=== PATIENT | male | born 1945 | race Caucasian/White ===

== ENCOUNTER 2023-09-09 12:18 | Inpatient (IN) | payer MEDICARE, MEDICAID ==
[~2023-09-09] VITALS: Ht 167.6 cm; Wt 126.4 kg
[2023-09-09 13:29] LABS: Basophils # (auto) 0 10 ^3/uL (0-0.2); Basophils % (auto) 0.4 % (0.0-2.0); Eosinophils # (auto) 0.1 10 ^3/uL (0-0.8); Eosinophils % (auto) 1.1 % (0.0-7.0); Hematocrit 34.4 % (41.0-53.0); Hemoglobin 10.8 g/dL (13.5-17.5); Lymphocytes % (auto) 23.8 % (10.0-50.0); Mean Corpuscular Hemoglobin 27.8 pg (28.0-32.0); Mean Corpuscular Hgb Conc. 31.4 g/dL (32.0-36.0); Mean Corpuscular Volume 88.5 fL (80.0-100.0); Monocytes # (auto) 1.7 10 ^3/uL (0-1.3); Monocytes % (auto) 13.5 % (0.0-12.0); Neutrophils # (auto) 7.6 10 ^3/uL (1.6-8.6); Neutrophils % (auto) 61.2 % (37.0-80.0); Nucleated Red Blood Cells % 0.3 %; Red Blood Cells 3.89 10^6/uL (4.5-5.90); Red Cell Distribution Width 14.7 % (11.8-14.3); White Blood Cell 12.4 10^3/uL (4.4-10.8)
[2023-09-09 13:43] LABS: Alanine Aminotransferase 15 U/L (7-40); Alkaline Phosphatase 37 U/L (46-116); Anion Gap 8 (5-15); Aspartate Aminotransferase 21 U/L (13-40); BUN/Creatinine Ratio 18.7 (10.0-20.0); Bilirubin, Total 0.3 mg/dL (0.2-1.0); Blood Urea Nitrogen 36 mg/dL (9-23); Calcium 8.7 mg/dL (8.5-10.1); Carbon Dioxide 26 mmol/L (20-30); Chloride 102 mmol/L (98-107); Glucose 82 mg/dL (74-106); Potassium 4.7 mmol/L (3.5-5.1); Sodium 136 mmol/L (136-145); Total Protein 5.9 g/dL (5.7-8.2)
[2023-09-09] MEDS: SODIUM CHLORIDE 0.9% 1,000 ML IV ONE (18:55)
[2023-09-09] MEDS ORDERED: MORPHINE SULFATE INJ 2 MG/ml SYRG IV PRN ×2 (19:00)
[2023-09-09] MEDS: traMADol HCL 50 MG TAB PO ONE (19:00)
[2023-09-09] MEDS ORDERED: NITROGLYCERIN 0.4 MG SL TAB SL PRN (19:00)
[2023-09-09] MEDS: SODIUM CHLORIDE 0.9% 1,000 ML IV SCH (19:00)
[2023-09-09] MEDS ORDERED: ONDANSETRON HCL 4 MG/2 ML VIAL IV PRN (19:00)
[2023-09-09] MEDS ORDERED: LEVO75TA6 PO (19:08)
[2023-09-09] MEDS ORDERED: PRAV20TA3 PO (19:08)
[2023-09-09] MEDS ORDERED: LISI10TA34 PO (19:08)
[2023-09-09] MEDS ORDERED: EMPA1TAB PO (19:08)
[2023-09-09] MEDS ORDERED: METO25TA93 PO (19:08)
[2023-09-09] MEDS ORDERED: ASPI-325 PO (19:08)
[2023-09-09] MEDS ORDERED: TAMS0.4C36 PO (19:08)
[2023-09-09] MEDS ORDERED: ESCI1TAB36 PO (19:08)
[2023-09-09] MEDS ORDERED: HYDR25TA87 PO (19:08)
[2023-09-09] MEDS ORDERED: DEXTROSE (50%) 50ML SYRG IV PRN (19:45)
[2023-09-09 21:40] LABS: Chloride 104 mmol/L (98-107); Potassium 4.5 mmol/L (3.5-5.1); Sodium 136 mmol/L (136-145)
[2023-09-09 21:41] LABS: Anion Gap 11 (5-15); Calcium 8.6 mg/dL (8.7-10.4); Carbon Dioxide 21 mmol/L (20-30)
[2023-09-09 21:46] LABS: Glucose 83 mg/dL (74-106)
[2023-09-09 21:47] LABS: Blood Urea Nitrogen 23 mg/dL (9-23)
[2023-09-09] MEDS: hydrALAZINE HCL 25 MG TAB PO SCH (22:00)
[2023-09-09] MEDS: ACCU-CHEK COMFORT CURVE STRIP VI SCH (22:00)
[2023-09-09] MEDS: InsuLIN REG 1unit/0.01ml Soln (100units/ml) SC SCH (22:00)
[2023-09-09] MEDS: ENOXAPARIN SOD 120 MG/0.8 ML SYRINGE SC SCH (22:45)
[2023-09-10] VITALS (9 sets, daily range): BP systolic 97–132; BP diastolic 52–77; PULSE 76–99; RESP 14–20; TEMP 98.1–99.1; O2SAT 91–98
[2023-09-10] MEDS: HYDROcodone-ACET 5/325MG TAB PO PRN ×2 (01:12→21:37)
[2023-09-10] MEDS: cefTRIAXone 1GM/50ML D5W 50 ML IV SCH (01:12)
[2023-09-10] MEDS: DOCUSATE SOD 100 MG CAP PO PRN (01:13)
[2023-09-10 02:39] LABS: Urine Bacteria FEW /hpf (None Seen); Urine Blood Negative /uL (Negative); Urine Clarity Clear (Clear); Urine Color Colorless (Yellow); Urine Hyaline Cast FEW /lpf (0 - 2); Urine Protein, UAD Negative (Negative); Urine Urobilinogen Normal (Negative); Urine WBC 17 /hpf (0 - 3)
[2023-09-10] MEDS ORDERED: OMEG-20 PO (05:40)
[2023-09-10] MEDS ORDERED: HYDR-4798 PO (05:40)
[2023-09-10] MEDS ORDERED: GABA-1308 PO (05:40)
[2023-09-10] MEDS ORDERED: MULT-928 PO (05:40)
[2023-09-10] MEDS ORDERED: B-COCAP34 OR (05:40)
[2023-09-10] MEDS ORDERED: COEN400C8 OR (05:40)
[2023-09-10] MEDS ORDERED: CHOL20007 PO (05:40)
[2023-09-10] MEDS ORDERED: MELO-335 PO (05:40)
[2023-09-10] MEDS ORDERED: GLYB2.5T9 PO (05:40)
[2023-09-10] MEDS ORDERED: EMPA1TAB PO (05:40)
[2023-09-10] MEDS ORDERED: FIBE1CHW PO (05:40)
[2023-09-10 05:41] LABS: Basophils # (auto) 0 10 ^3/uL (0-0.2); Basophils % (auto) 0.4 % (0.0-2.0); Eosinophils # (auto) 0.2 10 ^3/uL (0-0.8); Eosinophils % (auto) 1.7 % (0.0-7.0); Hematocrit 32.7 % (41.0-53.0); Hemoglobin 10.3 g/dL (13.5-17.5); Lymphocytes # (auto) 2.2 10 ^3/uL (0.4-5.4); Lymphocytes % (auto) 21.2 % (10.0-50.0); Mean Corpuscular Hemoglobin 28.3 pg (28.0-32.0); Mean Corpuscular Hgb Conc. 31.6 g/dL (32.0-36.0); Mean Corpuscular Volume 89.7 fL (80.0-100.0); Monocytes # (auto) 1.4 10 ^3/uL (0-1.3); Neutrophils # (auto) 6.4 10 ^3/uL (1.6-8.6); Neutrophils % (auto) 62.7 % (37.0-80.0); Red Blood Cells 3.65 10^6/uL (4.5-5.90); White Blood Cell 10.2 10^3/uL (4.4-10.8)
[2023-09-10 06:09] LABS: Alanine Aminotransferase 11 U/L (7-40); Albumin 3.7 g/dL (3.2-4.8); Alkaline Phosphatase 39 U/L (46-116); Anion Gap 9 (5-15); Aspartate Aminotransferase 20 U/L (13-40); BUN/Creatinine Ratio 12.3 (10.0-20.0); Blood Urea Nitrogen 20 mg/dL (9-23); Calcium 8.6 mg/dL (8.5-10.1); Carbon Dioxide 23 mmol/L (20-30); Chloride 107 mmol/L (98-107); Glucose 106 mg/dL (74-106); Sodium 139 mmol/L (136-145)
[2023-09-10 06:10] LABS: Bilirubin, Total 0.3 mg/dL (0.2-1.0)
[2023-09-10] MEDS: LEVOTHYROXINE SODIUM 50 MCG TAB PO SCH (06:15)
[2023-09-10] MEDS: CITALOPRAM HYDROBR 20 MG TAB PO SCH (09:28)
[2023-09-10] MEDS: METOPROLOL SUCCINATE XL 50 MG TAB PO SCH (09:28)
[2023-09-10] MEDS: TAMSULOSIN HYDROCHLORIDE 0.4 MG CAP PO SCH (09:30)
[2023-09-10] MEDS: PANTOPRAZOLE 40 MG TAB PO SCH (09:31)
[2023-09-10] MEDS: ENOXAPARIN SOD 40 MG/0.4 ML SYRINGE SC SCH (10:00)
[2023-09-10] MEDS ORDERED: GABA-1251 PO (12:19)
[2023-09-10] MEDS ORDERED: LISI20TA56 PO (12:20)
[2023-09-10] MEDS: SODIUM CHLORIDE 0.9% 1,000 ML IV SCH (15:00)
[2023-09-10] MEDS: traMADol HCL 50 MG TAB PO PRN (15:14)
[2023-09-10 15:43] LABS: COVID19 ANTIGEN SOFIA FIA NEGATIVE (NEGATIVE)
[2023-09-10 15:45] LABS: Rapid Influenza A Negative (Negative); Rapid Influenza B Negative (Negative)
[2023-09-10 21:17] LABS: Free T4 (Free Thyroxine) 1.13 ng/dL (0.89-1.76)
[2023-09-10 21:36] LABS: Triglycerides 88 mg/dL (< 150)
[2023-09-10 21:37] LABS: LDL Cholesterol 56 mg/dL (< 100)
[2023-09-10] MEDS: PRAVASTATIN SODIUM 20 MG TAB PO SCH (21:37)
[2023-09-10 21:38] LABS: Cholesterol 112 mg/dL (< 200); HDL Cholesterol 39 mg/dL (40-59)
[2023-09-11] VITALS (10 sets, daily range): BP systolic 101–180; BP diastolic 46–86; PULSE 68–106; RESP 18–22; TEMP 97.8–98.2; O2SAT 93–96
[2023-09-11] MEDS: HALOPERIDOL LACTATE 5 MG/ML INJ VIAL IM PRN (04:48)
[2023-09-11] MEDS: amLODIPine BESYLATE 5 MG TAB PO SCH (09:50)
[2023-09-11 10:50] LABS: Potassium 3.8 mmol/L (3.5-5.1); Sodium 140 mmol/L (136-145)
[2023-09-11 10:51] LABS: Calcium 8.6 mg/dL (8.5-10.1); Carbon Dioxide 25 mmol/L (20-30)
[2023-09-11 10:55] LABS: Basophils # (auto) 0 10 ^3/uL (0-0.2); Basophils % (auto) 0.5 % (0.0-2.0); Eosinophils # (auto) 0.1 10 ^3/uL (0-0.8); Eosinophils % (auto) 0.5 % (0.0-7.0); Hematocrit 32.1 % (41.0-53.0); Hemoglobin 10.2 g/dL (13.5-17.5); Lymphocytes # (auto) 1.7 10 ^3/uL (0.4-5.4); Lymphocytes % (auto) 16.2 % (10.0-50.0); Mean Corpuscular Hemoglobin 27.3 pg (28.0-32.0); Mean Corpuscular Hgb Conc. 31.8 g/dL (32.0-36.0); Mean Corpuscular Volume 86.1 fL (80.0-100.0); Neutrophils # (auto) 7.8 10 ^3/uL (1.6-8.6); Neutrophils % (auto) 73.8 % (37.0-80.0); Nucleated Red Blood Cells % 0.1 %; Red Blood Cells 3.73 10^6/uL (4.5-5.90); Red Cell Distribution Width 14.6 % (11.8-14.3); White Blood Cell 10.6 10^3/uL (4.4-10.8)
[2023-09-11 10:56] LABS: BUN/Creatinine Ratio 16.7 (10.0-20.0); Blood Urea Nitrogen 17 mg/dL (9-23); Glucose 124 mg/dL (74-106); Triglycerides 88 mg/dL (< 150)
[2023-09-11 10:57] LABS: LDL Cholesterol 60 mg/dL (< 100)
[2023-09-11 10:58] LABS: Cholesterol 116 mg/dL (< 200); HDL Cholesterol 39 mg/dL (40-59)
[2023-09-11 11:09] LABS: Anion Gap 7 (5-15); Chloride 108 mmol/L (98-107)
[2023-09-11 11:19] LABS: Magnesium 1.9 mg/dL (1.6-2.6)
[2023-09-11] MEDS: ENOXAPARIN SOD 40 MG/0.4 ML SYRINGE SC ONE (17:16)
[2023-09-11] MEDS: AMPICILLIN & SULBACTAM SODIUM 3 GM in SODIUM CHL 0.9% 100 ML IV SCH ×2 (18:07→23:50)
[2023-09-12] VITALS (12 sets, daily range): BP systolic 118–151; BP diastolic 58–80; PULSE 59–86; RESP 18–22; TEMP 97.8–99.3; O2SAT 96–99
[2023-09-12 06:53] LABS: Basophils # (auto) 0 10 ^3/uL (0-0.2); Basophils % (auto) 0.4 % (0.0-2.0); Eosinophils # (auto) 0.2 10 ^3/uL (0-0.8); Eosinophils % (auto) 1.9 % (0.0-7.0); Hematocrit 30.3 % (41.0-53.0); Lymphocytes # (auto) 1.9 10 ^3/uL (0.4-5.4); Lymphocytes % (auto) 15.4 % (10.0-50.0); Mean Corpuscular Hemoglobin 28.2 pg (28.0-32.0); Mean Corpuscular Volume 85.7 fL (80.0-100.0); Monocytes # (auto) 1.3 10 ^3/uL (0-1.3); Monocytes % (auto) 11.2 % (0.0-12.0); Neutrophils # (auto) 8.6 10 ^3/uL (1.6-8.6); Neutrophils % (auto) 71.1 % (37.0-80.0); Red Blood Cells 3.53 10^6/uL (4.5-5.90); Red Cell Distribution Width 14.1 % (11.8-14.3); White Blood Cell 12.1 10^3/uL (4.4-10.8)
[2023-09-12 07:14] LABS: Albumin 3.7 g/dL (3.2-4.8); Alkaline Phosphatase 35 U/L (46-116); Anion Gap 7 (5-15); Aspartate Aminotransferase 15 U/L (13-40); BUN/Creatinine Ratio 16.5 (10.0-20.0); Blood Urea Nitrogen 15 mg/dL (9-23); Calcium 8.4 mg/dL (8.7-10.4); Carbon Dioxide 27 mmol/L (20-30); Chloride 106 mmol/L (98-107); Glucose 110 mg/dL (74-106); Magnesium 1.9 mg/dL (1.6-2.6); Potassium 3.6 mmol/L (3.5-5.1); Sodium 140 mmol/L (136-145)
[2023-09-12 07:15] LABS: Bilirubin, Total 0.7 mg/dL (0.2-1.0); Total Protein 6.3 g/dL (5.7-8.2)
[2023-09-12 07:17] LABS: Alanine Aminotransferase < 9 U/L (7-40)
[2023-09-12] MEDS: LISINOPRIL 20 MG TAB PO SCH (10:34)
[2023-09-13 04:27] VITALS: BP 150/75; PULSE 83; RESP 18; TEMP 99.1; O2SAT 97
[2023-09-13 06:47] LABS: Basophils # (auto) 0 10 ^3/uL (0-0.2); Basophils % (auto) 0.5 % (0.0-2.0); Eosinophils # (auto) 0.2 10 ^3/uL (0-0.8); Eosinophils % (auto) 2.4 % (0.0-7.0); Hematocrit 31.1 % (41.0-53.0); Lymphocytes % (auto) 19.2 % (10.0-50.0); Mean Corpuscular Hemoglobin 27.7 pg (28.0-32.0); Mean Corpuscular Volume 86.5 fL (80.0-100.0); Monocytes # (auto) 1.3 10 ^3/uL (0-1.3); Neutrophils # (auto) 6.9 10 ^3/uL (1.6-8.6); Neutrophils % (auto) 65.9 % (37.0-80.0); Nucleated Red Blood Cells % 0.1 %; Red Cell Distribution Width 14.6 % (11.8-14.3); White Blood Cell 10.4 10^3/uL (4.4-10.8)
[2023-09-13 07:05] LABS: Albumin 3.7 g/dL (3.2-4.8); Alkaline Phosphatase 35 U/L (46-116); Anion Gap 9 (5-15); Aspartate Aminotransferase 18 U/L (13-40); BUN/Creatinine Ratio 17.2 (10.0-20.0); Blood Urea Nitrogen 16 mg/dL (9-23); Calcium 8.6 mg/dL (8.5-10.1); Carbon Dioxide 28 mmol/L (20-30); Chloride 105 mmol/L (98-107); Glucose 103 mg/dL (74-106); Potassium 3.6 mmol/L (3.5-5.1); Sodium 142 mmol/L (136-145)
[2023-09-13 07:06] LABS: Bilirubin, Total 0.8 mg/dL (0.2-1.0); Total Protein 6.1 g/dL (5.7-8.2)
[2023-09-13 07:07] LABS: Alanine Aminotransferase < 9 U/L (7-40)
[2023-09-13 08:00] VITALS: PULSE 68; PULSE 84; RESP 18
[2023-09-13 09:00] VITALS: BP 148/69; PULSE 76; RESP 18; TEMP 98.7; O2SAT 93
[2023-09-13 10:44] LABS: Folate (Folic Acid) > 24.00 ng/mL (>5.38)
[2023-09-13 17:07] VITALS: BP 156/77; PULSE 73; RESP 18; TEMP 98.6; O2SAT 98
[2023-09-13 20:00] VITALS: PULSE 78
[2023-09-13 22:00] VITALS: BP 130/55; PULSE 77; RESP 18; TEMP 97.8; O2SAT 94
[2023-09-14 05:00] VITALS: BP 149/72; PULSE 84; RESP 20; TEMP 98.6; O2SAT 93
[2023-09-14 08:00] VITALS: PULSE 94; RESP 20
[2023-09-14 08:44] VITALS: BP 165/85; PULSE 84; RESP 20; TEMP 98.8; O2SAT 98
[2023-09-14] MEDS: LISINOPRIL 20 MG TAB PO SCH (09:08)
[2023-09-14] MEDS: ACETAMINOPHEN 325 MG TAB PO PRN (11:06)
[2023-09-14 13:00] VITALS: BP 147/74; PULSE 76; RESP 18; TEMP 98.2; O2SAT 94
[2023-09-14] MEDS: ASPirin 81 mg TAB PO ONE (13:16)
[2023-09-14] MEDS: AZITHROMYCIN 500MG/ 250ML 250 ML IV ONE (14:09)
[2023-09-14] MEDS: IBUPROFEN 400 MG TAB PO PRN (16:12)
[2023-09-14] MEDS ORDERED: ACETAMINOPHEN 325 MG TAB PO PRN ×2 (16:30→18:00)
[2023-09-14] MEDS ORDERED: IBUPROFEN 400 MG TAB PO PRN (16:30)
[2023-09-14 17:00] VITALS: BP 131/71; PULSE 79; RESP 20; TEMP 98.5; O2SAT 94
[2023-09-14] MEDS: TAMSULOSIN HYDROCHLORIDE 0.4 MG CAP PO SCH (18:18)
[2023-09-14] MEDS: cefTRIAXone 1GM/50ML D5W 50 ML IV ONE (18:18)
[2023-09-14 18:27] LABS: Alanine Aminotransferase 19 U/L (7-40); Albumin 3.8 g/dL (3.2-4.8); Alkaline Phosphatase 38 U/L (46-116); Anion Gap 6 (5-15); Aspartate Aminotransferase 28 U/L (13-40); BUN/Creatinine Ratio 11.5 (10.0-20.0); Blood Urea Nitrogen 11 mg/dL (9-23); Calcium 8.9 mg/dL (8.5-10.1); Carbon Dioxide 29 mmol/L (20-30); Chloride 104 mmol/L (98-107); Glucose 131 mg/dL (74-106); Potassium 3.6 mmol/L (3.5-5.1); Sodium 139 mmol/L (136-145)
[2023-09-14 18:28] LABS: Bilirubin, Total 1.1 mg/dL (0.2-1.0); Total Protein 6.4 g/dL (5.7-8.2)
[2023-09-14 18:30] LABS: Basophils # (auto) 0 10 ^3/uL (0-0.2); Basophils % (auto) 0.5 % (0.0-2.0); Eosinophils # (auto) 0.4 10 ^3/uL (0-0.8); Eosinophils % (auto) 3.4 % (0.0-7.0); Hematocrit 33.1 % (41.0-53.0); Hemoglobin 10.5 g/dL (13.5-17.5); Lymphocytes # (auto) 1.9 10 ^3/uL (0.4-5.4); Lymphocytes % (auto) 18.3 % (10.0-50.0); Mean Corpuscular Hemoglobin 27.5 pg (28.0-32.0); Mean Corpuscular Hgb Conc. 31.8 g/dL (32.0-36.0); Mean Corpuscular Volume 86.5 fL (80.0-100.0); Monocytes # (auto) 1.3 10 ^3/uL (0-1.3); Monocytes % (auto) 12.5 % (0.0-12.0); Neutrophils # (auto) 6.8 10 ^3/uL (1.6-8.6); Neutrophils % (auto) 65.3 % (37.0-80.0); Nucleated Red Blood Cells % 0.1 %; Red Blood Cells 3.83 10^6/uL (4.5-5.90); Red Cell Distribution Width 14.3 % (11.8-14.3); White Blood Cell 10.4 10^3/uL (4.4-10.8)
[2023-09-14] MEDS: IBUPROFEN 400 MG TAB PO SCH (18:37)
[2023-09-14 20:00] VITALS: PULSE 80
[2023-09-14] MEDS: DOCUSATE SOD 100 MG CAP PO SCH (21:56)
[2023-09-14 23:47] LABS: COVID19 ANTIGEN SOFIA FIA NEGATIVE (NEGATIVE); Rapid Influenza A Negative (Negative); Rapid Influenza B Negative (Negative)
[2023-09-15] VITALS (7 sets, daily range): BP systolic 146–168; BP diastolic 68–76; PULSE 72–82; RESP 20–23; TEMP 98–98.5; O2SAT 90–94
[2023-09-15 06:36] LABS: Basophils # (auto) 0 10 ^3/uL (0-0.2); Basophils % (auto) 0.3 % (0.0-2.0); Eosinophils # (auto) 0.4 10 ^3/uL (0-0.8); Eosinophils % (auto) 3.9 % (0.0-7.0); Hematocrit 31.4 % (41.0-53.0); Hemoglobin 10.1 g/dL (13.5-17.5); Lymphocytes # (auto) 1.6 10 ^3/uL (0.4-5.4); Lymphocytes % (auto) 16.6 % (10.0-50.0); Mean Corpuscular Hemoglobin 27.8 pg (28.0-32.0); Mean Corpuscular Hgb Conc. 32.3 g/dL (32.0-36.0); Mean Corpuscular Volume 86.1 fL (80.0-100.0); Monocytes # (auto) 1.2 10 ^3/uL (0-1.3); Monocytes % (auto) 12.5 % (0.0-12.0); Neutrophils # (auto) 6.4 10 ^3/uL (1.6-8.6); Neutrophils % (auto) 66.7 % (37.0-80.0); Red Blood Cells 3.65 10^6/uL (4.5-5.90); Red Cell Distribution Width 14.3 % (11.8-14.3); White Blood Cell 9.6 10^3/uL (4.4-10.8)
[2023-09-15 06:39] LABS: Alanine Aminotransferase 15 U/L (7-40); Albumin 3.7 g/dL (3.2-4.8); Alkaline Phosphatase 38 U/L (46-116); Anion Gap 7 (5-15); Aspartate Aminotransferase 22 U/L (13-40); Bilirubin, Total 1.1 mg/dL (0.2-1.0); Blood Urea Nitrogen 13 mg/dL (9-23); Calcium 8.6 mg/dL (8.7-10.4); Carbon Dioxide 30 mmol/L (20-30); Chloride 103 mmol/L (98-107); Glucose 135 mg/dL (74-106); Magnesium 1.7 mg/dL (1.6-2.6); Potassium 3.4 mmol/L (3.5-5.1); Sodium 140 mmol/L (136-145); Total Protein 6.4 g/dL (5.7-8.2)
[2023-09-15] MEDS: SODIUM CHLORIDE 0.9% 1,000 ML IV SCH ×2 (07:00→16:45)
[2023-09-15] MEDS ORDERED: hydrALAZINE HCL 20 MG/ML VL IV PRN (07:15)
[2023-09-15] MEDS ORDERED: POTASSIUM CHL 20 Meq TABLET PO ONE (08:15)
[2023-09-15] MEDS: POTASSIUM EFFERVESENT TAB 25 MEQ PO ONE (09:50)
[2023-09-15] MEDS: cefTRIAXone 1GM/50ML D5W 50 ML IV SCH (09:50)
[2023-09-15] MEDS: AZITHROMYCIN 500MG/ 250ML 250 ML IV SCH (09:51)
[2023-09-15] MEDS: EMPAGLIFLOZIN 10 MG TAB PO SCH (11:05)
[2023-09-15] MEDS: ASPirin 81 mg TAB PO SCH (11:05)
[2023-09-15] MEDS: ACETAMINOPHEN 325 MG TAB PO SCH (11:05)
[2023-09-15] MEDS: IBUPROFEN 400 MG TAB PO PRN (15:15)
[2023-09-15] MEDS ORDERED: MORPHINE SULFATE INJ 2 MG/ml SYRG IV PRN (15:30)
[2023-09-15] MEDS: MORPHINE SULFATE INJ 2 MG/ml SYRG IV PRN (21:00)
[2023-09-15] MEDS ORDERED: ACETAMINOPHEN 325 MG TAB PO SCH (22:00)
[2023-09-16] VITALS (7 sets, daily range): BP systolic 136–158; BP diastolic 60–75; PULSE 69–78; RESP 17–94; TEMP 97.9–98.7; O2SAT 17–95
[2023-09-16 02:19] LABS: Urine Bacteria NONE SEEN /hpf (None Seen); Urine Blood TRACE /uL (Negative); Urine Clarity Clear (Clear); Urine Color Yellow (Yellow); Urine Protein, UAD TRACE (Negative); Urine Specific Gravity 1.027 (1.001-1.035); Urine Urobilinogen Normal (Negative); Urine WBC 1 /hpf (0 - 3)
[2023-09-16] MEDS: PANTOPRAZOLE 40 MG TAB PO SCH (05:50)
[2023-09-16 06:43] LABS: Alanine Aminotransferase 13 U/L (7-40); Alkaline Phosphatase 39 U/L (46-116); Anion Gap 9 (5-15); BUN/Creatinine Ratio 13.7 (10.0-20.0); Blood Urea Nitrogen 13 mg/dL (9-23); Calcium 8.6 mg/dL (8.7-10.4); Carbon Dioxide 27 mmol/L (20-30); Chloride 104 mmol/L (98-107); Glucose 107 mg/dL (74-106); Magnesium 1.7 mg/dL (1.6-2.6); Potassium 3.3 mmol/L (3.5-5.1); Sodium 140 mmol/L (136-145)
[2023-09-16 06:44] LABS: Albumin 3.7 g/dL (3.2-4.8); Aspartate Aminotransferase 21 U/L (13-40)
[2023-09-16 06:45] LABS: Total Protein 6.4 g/dL (5.7-8.2)
[2023-09-16 06:58] LABS: Basophils # (auto) 0.1 10 ^3/uL (0-0.2); Basophils % (auto) 0.6 % (0.0-2.0); Eosinophils # (auto) 0.3 10 ^3/uL (0-0.8); Eosinophils % (auto) 2.5 % (0.0-7.0); Hemoglobin 10.1 g/dL (13.5-17.5); Lymphocytes % (auto) 19.7 % (10.0-50.0); Mean Corpuscular Hemoglobin 27.7 pg (28.0-32.0); Mean Corpuscular Hgb Conc. 32.7 g/dL (32.0-36.0); Mean Corpuscular Volume 84.7 fL (80.0-100.0); Monocytes # (auto) 1.5 10 ^3/uL (0-1.3); Monocytes % (auto) 14.4 % (0.0-12.0); Neutrophils # (auto) 6.5 10 ^3/uL (1.6-8.6); Neutrophils % (auto) 62.8 % (37.0-80.0); Red Blood Cells 3.67 10^6/uL (4.5-5.90); Red Cell Distribution Width 14.4 % (11.8-14.3); White Blood Cell 10.3 10^3/uL (4.4-10.8)
[2023-09-16] MEDS: GABAPENTIN 400 MG CAP PO SCH (21:13)
[2023-09-17 04:21] VITALS: BP 108/60; PULSE 86; RESP 18; TEMP 98.1; O2SAT 93
[2023-09-17 06:03] LABS: Basophils # (auto) 0 10 ^3/uL (0-0.2); Basophils % (auto) 0.5 % (0.0-2.0); Eosinophils # (auto) 0.3 10 ^3/uL (0-0.8); Eosinophils % (auto) 3.7 % (0.0-7.0); Hemoglobin 10.3 g/dL (13.5-17.5); Lymphocytes # (auto) 1.8 10 ^3/uL (0.4-5.4); Lymphocytes % (auto) 21.8 % (10.0-50.0); Mean Corpuscular Hemoglobin 27.6 pg (28.0-32.0); Mean Corpuscular Hgb Conc. 32.3 g/dL (32.0-36.0); Mean Corpuscular Volume 85.3 fL (80.0-100.0); Monocytes % (auto) 11.7 % (0.0-12.0); Neutrophils # (auto) 5.2 10 ^3/uL (1.6-8.6); Neutrophils % (auto) 62.3 % (37.0-80.0); Nucleated Red Blood Cells % 0.1 %; Red Blood Cells 3.75 10^6/uL (4.5-5.90); Red Cell Distribution Width 14.4 % (11.8-14.3); White Blood Cell 8.3 10^3/uL (4.4-10.8)
[2023-09-17 06:12] LABS: Anion Gap 8 (5-15); Carbon Dioxide 30 mmol/L (20-30); Chloride 103 mmol/L (98-107); Potassium 3.4 mmol/L (3.5-5.1); Sodium 141 mmol/L (136-145)
[2023-09-17 06:14] LABS: Calcium 9.1 mg/dL (8.5-10.1)
[2023-09-17 06:18] LABS: Glucose 108 mg/dL (74-106)
[2023-09-17 06:19] LABS: Blood Urea Nitrogen 13 mg/dL (9-23)
[2023-09-17 08:00] VITALS: PULSE 74; PULSE 76; RESP 70; O2SAT 92
[2023-09-17 08:38] VITALS: BP 156/75; PULSE 76; RESP 18; TEMP 97.9; O2SAT 92
[2023-09-17 12:53] VITALS: BP 139/67; PULSE 72; RESP 18; TEMP 97.7; O2SAT 95
[2023-09-17] MEDS: POTASSIUM CHL 20 Meq TABLET PO ONE (13:45)
[2023-09-17 20:00] VITALS: PULSE 66; RESP 18; O2SAT 92
[2023-09-17 22:00] VITALS: BP 123/59; PULSE 69; RESP 18; TEMP 97.7; O2SAT 94
[2023-09-18 05:00] VITALS: BP 135/65; PULSE 75; RESP 18; TEMP 97.7; O2SAT 93
[2023-09-18 05:56] LABS: Anion Gap 6 (5-15); Carbon Dioxide 29 mmol/L (20-30); Chloride 105 mmol/L (98-107); Potassium 3.3 mmol/L (3.5-5.1); Sodium 140 mmol/L (136-145)
[2023-09-18 05:57] LABS: Calcium 8.5 mg/dL (8.7-10.4)
[2023-09-18 06:02] LABS: Blood Urea Nitrogen 13 mg/dL (9-23); Glucose 107 mg/dL (74-106)
[2023-09-18 08:00] VITALS: BP 135/65; PULSE 69; PULSE 75; RESP 18; TEMP 97.7; O2SAT 93
[2023-09-18 09:00] VITALS: BP 112/57; PULSE 77; RESP 17; TEMP 98; O2SAT 92
[2023-09-18 13:00] VITALS: BP 127/76; PULSE 74; RESP 17; TEMP 97.4; O2SAT 94
[2023-09-18] MEDS ORDERED: TRAM50TA2 PO (13:20)
[2023-09-18] MEDS ORDERED: LEVO500T91 PO (13:20)
[2023-09-18 15:10] VITALS: BP 135/65; PULSE 75; RESP 18; TEMP 97.7; O2SAT 93
== END 2023-09-18 16:35 | disposition home health service (06) | DRG 871 ==
LOC: ER 12:18 → TELE 18:53 → TELE-EAST 09-10 02:55
PROVIDERS: ADMIT Internal Medicine Geriatric Medicine; ATTEND Internal Medicine Geriatric Medicine
DX: A41.9 Sepsis, unspecified organism (principal); G93.41 Metabolic encephalopathy; N17.0 Acute kidney failure with tubular necrosis; I13.0 Hypertensive heart and chronic kidney disease with heart failure and stage 1 through stage 4 chronic kidney disease, or unspecified chronic kidney disease; S42.302A Unspecified fracture of shaft of humerus, left arm, initial encounter for closed fracture; S42.292A Other displaced fracture of upper end of left humerus, initial encounter for closed fracture; I47.10 Supraventricular tachycardia, unspecified; N39.0 Urinary tract infection, site not specified; Z68.42 Body mass index [BMI] 45.0-49.9, adult; I50.30 Unspecified diastolic (congestive) heart failure; I27.20 Pulmonary hypertension, unspecified; E11.22 Type 2 diabetes mellitus with diabetic chronic kidney disease; Z20.822 Contact with and (suspected) exposure to COVID-19; E66.01 Morbid (severe) obesity due to excess calories; D64.9 Anemia, unspecified; D69.59 Other secondary thrombocytopenia; E03.9 Hypothyroidism, unspecified; E11.65 Type 2 diabetes mellitus with hyperglycemia; E78.5 Hyperlipidemia, unspecified; G89.4 Chronic pain syndrome; I25.10 Atherosclerotic heart disease of native coronary artery without angina pectoris; K80.20 Calculus of gallbladder without cholecystitis without obstruction; N40.0 Benign prostatic hyperplasia without lower urinary tract symptoms; W01.0XXA Fall on same level from slipping, tripping and stumbling without subsequent striking against object, initial encounter; N18.30 Chronic kidney disease, stage 3 unspecified; E11.40 Type 2 diabetes mellitus with diabetic neuropathy, unspecified; Z79.82 Long term (current) use of aspirin; Z79.84 Long term (current) use of oral hypoglycemic drugs; Z79.899 Other long term (current) drug therapy; Y93.89 Activity, other specified; Y92.89 Other specified places as the place of occurrence of the external cause; Y99.8 Other external cause status; Z87.891 Personal history of nicotine dependence; D69.6 Thrombocytopenia, unspecified
CPT/HCPCS: 36415; 70450; 70551; 71045; 73030; 73200; 76775; 76881; 78582; 80048; 80053; 80061; 81001; 82140; 82570; 82607; 82746; 82962; 83036; 83605; 83735; 83880; 83935; 84300; 84439; 84443; 84484; 85025; 85379; 86592; 86850; 86900; 86901; 87040; 87081; 87086; 87426; 87804; 93005; 93306; 93886; 93970; 95819; 97110; 97116; 97163; 97530; G0378